=== PATIENT | male | born 1950 | race Caucasian/White ===

== ENCOUNTER → 2018-03-26 | Day surgery (SDC) | payer BC ==
[~2018-03-26] MED LIST: ACETAMINOPHEN 1000 MG/100 ML 100 ML IV ONE; ALBUTEROL0.63 MG/3 NEB; BUPIVACAINE 0.5%/EPI 30 ML SDV INJ ONE; DEXAMETHASONE SOD PHOS INJ 4 MG/ML VIAL ONE; FENTANYL CITRATE/PF 100MCG/2 ML INJ ONE; HYDROCODONE/APAP 7.5MG-325MG 1 EA TAB ONE; HYDROMORPHONE 2MG/ML 2 MG/ML ML ONE; KETOROLAC TROMETHAMINE 30 MG/ML VIAL ONE; LIDOCAINE HCL 2% LOCAL INJ 5 ML SDV VIAL INJ ONE; MIDAZOLAM HCL 2 MG/2 ML VIAL ONE; ONDANSETRON HCL INJ 2 MG/ML VIAL ONE; PROAIR HFA INH8.5 GM INH; PROPOFOL IV EMULSION 10 MG/ML 20 ML VIAL ONE; ROCURONIUM BROMIDE 10 MG/ML 5ML VIAL ONE; SEVOFLURANE INHAL SOLN 250 ML PEN BTL ONE; SYMBICORT 16010.2 GM INH
[2018-03-26 10:04] LABS: BASOPHILS % 0.6 % (0.0-1.0); EOSINOPHILS # (AUTO) 0.1 (0.0-0.4); EOSINOPHILS % 0.9 % (0.0-6.0); HEMATOCRIT 46.8 % (38.2-49.6); HEMOGLOBIN 16.3 g/dL (14.0-18.0); LYMPHOCYTES # (AUTO) 0.7 (1.0-3.2); MEAN CORPUSCULAR HEMOGLOBIN 32.9 pg (28-32); MEAN CORPUSCULAR HGB CONC 34.8 g/dL (31-35); MEAN CORPUSCULAR VOLUME 94.5 fL (81-99); MONOCYTES # (AUTO) 0.6 (0.2-0.8); MONOCYTES % 9.3 % (4.4-11.3); NEUTROPHILS # (AUTO) 5.4 (2.1-6.9); NEUTROPHILS % 77.9 % (38.7-80.0); PLATELET COUNT 259 x10e3/uL (140-360); RED BLOOD COUNT 4.95 x10e6/uL (4.3-5.7)
[2018-03-26 10:23] LABS: ANION GAP 16.2 mmol/L (8-16); BLOOD UREA NITROGEN 9 mg/dL (7-26); BUN/CREATININE RATIO 12 (6-25); CALCIUM 9.5 mg/dL (8.4-10.2); CARBON DIOXIDE 22 mmol/L (22-29); CHLORIDE 95 mmol/L (98-107); CREATININE, SERUM 0.76 mg/dL (0.72-1.25); EST GLOMERULAR FILTRATION RATE > 60 ML/MIN (60-); GLUCOSE 101 mg/dL (74-118); POTASSIUM 4.2 mmol/L (3.5-5.1); SODIUM 129 mmol/L (136-145)
--- NOTE | 2018-03-26 15:55 | Operative Report ---
DATE OF PROCEDURE: March 26, 2018 PREOPERATIVE DIAGNOSIS: Umbilical hernia. POSTOPERATIVE DIAGNOSIS: Umbilical hernia. OPERATION PERFORMED: Repair of umbilical hernia with large Ventralex patch. MILIEU COORDINATOR: Rosy PAYNE. ANESTHESIA: General. COMPLICATIONS: None. ESTIMATED BLOOD LOSS: Minimal. DESCRIPTION OF PROCEDURE: With the patient lying in bed in the supine position under good general endotracheal anesthesia, the abdomen was prepped with Betadine solution and draped in the usual manner. A semilunar subumbilical incision was made. It was carried down through the subcutaneous tissue down to the fascia. The hernia sac was then encircled with normal fascia all the way around. The umbilicus was then detached from the hernia sac, and the contents were reduced back to the intraabdominal cavity. A large Ventralex patch was then placed through the hernia defect into the intraabdominal cavity and deployed without any difficulty. The mesh was then anchored to the anterior abdominal wall using interrupted sutures of 0 Ethibond, and the midline defect was closed transversely using interrupted 0 Ethibond. This gave us a satisfactory repair without any tension. The whole area was then thoroughly irrigated. Perfect hemostasis was ascertained. All layers were infiltrated on the way out with solution of 1/4 percent Marcaine. Subcutaneous tissue was approximated with 3-0 Vicryl. The umbilicus was tacked back down to the midline fascia with 3-0 Vicryl, and the skin was closed with interrupted vertical mattress sutures of 3-0 silk. A dressing was applied. The sponge, lap and needle count was correct. The patient tolerated the procedure well and returned to the recovery room in stable condition. Job#: [id number]
[2018-03-26 16:10] VITALS: BP 33/92
== END | disposition home or self-care (01) ==
LOC: OR 09:13
PROVIDERS: ATTEND Surgery
DX: K42.9 Umbilical hernia without obstruction or gangrene (principal); M06.9 Rheumatoid arthritis, unspecified; J44.9 Chronic obstructive pulmonary disease, unspecified; F17.210 Nicotine dependence, cigarettes, uncomplicated; Z79.82 Long term (current) use of aspirin
CPT/HCPCS: 36415; 49585; 80048; 85025; 93005; C1781; J0131; J1100; J1170; J1885; J2001; J2250; J2405; J2704

== ENCOUNTER → 2018-08-25 | Day surgery (SDC) | payer BC ==
[2018-08-24 16:00] LABS: BASOPHILS # (AUTO) 0.1 (0.0-0.1); BASOPHILS % 1.1 % (0.0-1.0); EOSINOPHILS # (AUTO) 0.1 (0.0-0.4); EOSINOPHILS % 1.3 % (0.0-6.0); HEMATOCRIT 41.8 % (38.2-49.6); HEMOGLOBIN 15.2 g/dL (14.0-18.0); LYMPHOCYTES # (AUTO) 0.9 (1.0-3.2); LYMPHOCYTES % 16.9 % (18.0-39.1); MEAN CORPUSCULAR HEMOGLOBIN 33.7 pg (28-32); MEAN CORPUSCULAR HGB CONC 36.4 g/dL (31-35); MEAN CORPUSCULAR VOLUME 92.7 fL (81-99); MONOCYTES # (AUTO) 0.5 (0.2-0.8); MONOCYTES % 8.9 % (4.4-11.3); NEUTROPHILS # (AUTO) 3.9 (2.1-6.9); NEUTROPHILS % 71.1 % (38.7-80.0); PLATELET COUNT 237 x10e3/uL (140-360); RED BLOOD COUNT 4.51 x10e6/uL (4.3-5.7); RED CELL DISTRIBUTION WIDTH 13.3 % (11.7-14.4)
--- NOTE | 2018-08-24 17:39 | Diagnostic Imaging Report ---
EXAM: CHEST 2 VIEWS, PA and lateral DATE: 08/24/2018 Time stamp on exam: 4:04 PM INDICATION: Preoperative COMPARISON: None FINDINGS: LINES/TUBES: None LUNGS: No consolidations or edema. PLEURA: No effusions or pneumothorax. HEART AND MEDIASTINUM: Normal size and contour. BONES AND SOFT TISSUES: No acute findings. Degenerative spurring of the thoracic spine. IMPRESSION: No acute thoracic abnormality. Signed by: Dr. Braydon Guerrero DO on 08/24/2018 5:35 PM
[~2018-08-25] MED LIST changes: -ACETAMINOPHEN 1000 MG/100 ML 100 ML IV ONE; -BUPIVACAINE 0.5%/EPI 30 ML SDV INJ ONE; +BUPIVACAINE HCL 0.5% INJ 30 ML VIAL INJ ONE; +CEFAZOLIN SOD 1 GM/NS 50ML 50 ML IV ONE; -HYDROCODONE/APAP 7.5MG-325MG 1 EA TAB ONE; -HYDROMORPHONE 2MG/ML 2 MG/ML ML ONE; +NAPROXEN250 MG PO; -ONDANSETRON HCL INJ 2 MG/ML VIAL ONE; +ONDANSETRON HCL INJ 2MG/ML 2ML 2 MG/ML VIAL ONE; -ROCURONIUM BROMIDE 10 MG/ML 5ML VIAL ONE; +SINGULAIR10 MG PO
--- OUTSIDE RECORDS SUMMARY | 2018-08-25 06:08 | XMS REPORT ---
Author Author [facility] Address Unknown Phone Unavailable Care Team Providers Care Home Paraprofessional Name Role Phone Nghia SAMAYOA Unavailable Unavailable Problems This patient has no known problems. Allergies, Adverse Reactions, Alerts This patient has no known allergies or adverse reactions. Medications This patient has no known medications. Results Test Description Test Time Test Comments Text Results Atomic Results Result Comments CHEST 2 VIEWS 2018-08-24 17:34:00 [place] [address] Patient Name: BUFFY RUBIO MR #: [id number] : 1950 Age/Sex: 68/M Req #: [id number] Adm Physician: Ordered by: Nghia SAMAYOA DPM Report #: [id number] Location: OR Room/Bed: Procedure: [id number] DX/CHEST 2 VIEWS Exam Date: 08/24/18 Exam Time: 1600 REPORT STATUS: Signed EXAM: CHEST 2 VIEWS, PA and lateral DATE: 08/24/[address] [facility] on exam: 4:04 PM INDICATION: Preoperative COMPARISON: None FINDINGS: LINES/TUBES: None LUNGS: No consolidations or edema. PLEURA: No effusions or pneumothorax. HEART AND MEDIASTINUM: Normal size and contour. BONES AND SOFT TISSUES: No acute findings. Degenerative spurring of the thoracic spine. IMPRESSION: No acute thoracic abnormality. Signed by: Dr. Latoya Jean DO on 08/24/2018 5:35 PM Dictated By: LATOYA JEAN DO 173 Transcribed By: GAIL on 08/24/181734 COPY TO: Nghia SAMAYOA DPM
[2018-08-25 09:15] VITALS: BP 122/73
--- NOTE | 2018-08-25 14:24 | Operative Report ---
DATE OF PROCEDURE: 08/25/2018 SURGEON: Katie Caicedo DPM PREOPERATIVE DIAGNOSES: 1. Right foot heel spur. 2. Right foot second interspace neuroma. 3. Right foot third interspace neuroma. 4. Left second and third interspace neuroma. 5. Left heel spur. POSTOPERATIVE DIAGNOSES: 1. Right foot heel spur. 2. Right foot second interspace neuroma. 3. Right foot third interspace neuroma. 4. Left second and third interspace neuroma. 5. Left heel spur. PLANNED PROCEDURES: 1. Right heel spur excision .. 2. Right second and third interspace neuroma excision. 3. Left steroid injection, heel spur. 4. Left steroid injection, second and third interspace. DRILL SHARPENER: Nghia Saxena DPM. ANESTHESIA: General with a postoperative block consisting of 20 mL of 0.5% Marcaine mixed with 1 mL of dexamethasone phosphate to the right foot and 10 mL of 0.5% Marcaine plain mixed with 4 mL of dexamethasone phosphate to the left foot. ESTIMATED BLOOD LOSS: Less than 10 mL. PATHOLOGY: None. MATERIALS: A 3-0 Vicryl, 4-0 nylon, one TLS drain. PROCEDURE NOTE: The patient was seen in the preoperative waiting room where the correct procedure and site were identified. The patient was brought to the operating room, placed on the operating table in the supine position. General anesthesia was initiated. At this time, a well-padded pneumatic tourniquet was placed about the patient's right thigh. The right foot, ankle, and leg were then scrubbed, prepped, and draped in the usual aseptic manner. The right foot, ankle, and leg were exsanguinated with an Esmarch bandage and the pneumatic thigh tourniquet was inflated to 350 mmHg for a total time of approximately 30 minutes. Attention was directed to the dorsal aspect of the patient's right foot where a 4 cm linear incision was made directly over the third interspace. The incision was carried through the subcutaneous tissues them from deeper underlying structures. All vital neurovascular structures were identified and retracted medially and laterally. All bleeders were cauterized or ligated as deemed necessary. Incision was carried down to the level of subcutaneous tissue down to the level of the deep transverse metatarsal ligament. The deep transverse metatarsal ligament was incised to allow for good visualization of the interspace neuroma. The intermetatarsal nerve as well as the proper digital branches were easily identified, noted to be tortuous, enlarged, and inflamed. The dissection was carried distally to the proper digital branches, they were cut distally, dissected proximally and cut and allowed to retract into the foot. The wound was then copiously irrigated with sterile saline. Deep tissue reapproximated with 3-0 Vicryl and the skin was closed using running interlocking sutures of 4-0 nylon. Attention was directed to the second interspace where again a 4 cm linear incision was made directly over the interspace, it was carried to subcutaneous tissue it from deeper underlying structures. All vital neurovascular structures were identified, retracted medially and laterally. All bleeders were cauterized or ligated as deemed necessary. The incision was carried down to the level of deep transverse metatarsal ligament, was incised to allow for good visualization of the second interspace neuroma, which was noted to be tortuous, inflamed, and enlarged; however, not to the extent of the third interspace. It was excised and passed off to the back table in the same technique. Again, the wound was copiously irrigated with sterile saline mixed with bacitracin. The deep tissue was reapproximated with 3-0 Vicryl and the skin was reapproximated utilizing simple interlocking sutures with 4-0 nylon. Attention was then directed to the medial aspect of the patient's right heel where a 5 cm linear incision was made on medial inferior aspect of the heel. The incision was carried to subcutaneous tissue, from deeper underlying structures. The incision was carried through subcutaneous tissue down to the level of the plantar fascia, which was easily identified utilizing Metzenbaum scissors and cut approximately one-third to one-half. The dissection was then carried down to visualize the plantar heel spur. Utilizing osteotome, mallet, rongeur, and a rasp, the heel spur was removed and smoothed down to anatomic alignment. This was confirmed via intraoperative fluoroscopy. Next, per manufacture protocol, one TLS drain was placed and found to be functioning properly. The wound was then flushed with copious amounts of sterile saline mixed with bacitracin. The deep tissues were reapproximated with 3-0 Vicryl, subcutaneous tissue with 3-0 Vicryl, and the skin was closed using a running interlocking stitch of 4-0 nylon. The patient tolerated procedure and anesthesia well. The patient was transferred to the postoperative recovery room with vital signs stable and vascular status intact. The patient was monitored there for a short period time before being sent home with the following written and oral instructions. 1. Keep the dressing clean, dry, and intact. 2. The patient is to remain nonweightbearing in a postop shoe to avoid any ambulation until being seen in the office. 3. The patient is given the office number to try to contact us if any problems arise. ANTON Ochoa/SHAMAL /[phone]
== END | disposition home or self-care (01) ==
LOC: OR 05:55
PROVIDERS: ATTEND Podiatrist Foot & Ankle Surgery
DX: G57.83 Other specified mononeuropathies of bilateral lower limbs (principal); M77.32 Calcaneal spur, left foot; M77.31 Calcaneal spur, right foot; J44.9 Chronic obstructive pulmonary disease, unspecified; Z01.810 Encounter for preprocedural cardiovascular examination; Z01.812 Encounter for preprocedural laboratory examination; Z01.818 Encounter for other preprocedural examination
CPT/HCPCS: 28080 ×2; 28119; 36415; 71046; 85025; 93005; J0690; J1100; J1885; J2001; J2250; J2405; J2704